=== PATIENT | female | born 1950 | race Caucasian/White ===

== ENCOUNTER 2017-08-12 19:30 | Emergency (ER) | payer OTHER ==
[~2017-08-12] VITALS: Ht 162.6 cm; Wt 99.8 kg
[2017-08-12 19:56] LABS: URINE BILIRUBIN NEGATIVE (Negative); URINE BLOOD NEGATIVE (Negative); URINE CLARITY CLEAR; URINE COLOR YELLOW; URINE GLUCOSE-RANDOM* NEGATIVE (Negative); URINE KETONES NEGATIVE (Negative); URINE LEUKOCYTES NEGATIVE (Negative); URINE NITRITE NEGATIVE (Negative); URINE PROTEIN (DIPSTICK) NEGATIVE (Negative); URINE UROBILINOGEN 0.2 E.U./dl (0.2-1.0)
[2017-08-12] MEDS ORDERED: ZESTORETIC 20-1 EAC3 PO (20:54)
[2017-08-12] MEDS ORDERED: ASPIR 8181 MG PO (20:54)
[2017-08-12] MEDS ORDERED: CLONIDINE0.1 PO (20:54)
[2017-08-12 20:58] LABS: ABSOLUTE NEUTROPHILS 12.3 thou/uL (1.4-8.2); BASOPHILS 0.7 % (0.0-2.0); HEMOGLOBIN 14.2 gm/dL (12.0-15.0); LYMPHOCYTES 11.6 % (24.0-44.0); MCH 31.7 pg (26.0-34.0); MCHC 34.6 g/dL (28.0-37.0); MCV 91.7 fL (80.0-100.0); MONOCYTES 5.8 % (1.0-8.0); PLATELET COUNT 271 thou/uL (150-400); POLYS 80.9 % (36.0-66.0); RBC 4.47 mil/uL (4.20-5.00); RDW 13.9 % (10.5-14.5); WBC 15.2 thou/uL (4.0-11.0)
[2017-08-12 21:07] LABS: CALCIUM 9.5 mg/dL (8.5-10.1); CREATININE 0.9 mg/dL (0.6-1.0); POTASSIUM 3.8 mmol/L (3.5-5.1)
[2017-08-12 21:12] LABS: ALBUMIN 4.1 g/dL (3.4-5.0); TOTAL BILIRUBIN 0.4 mg/dL (<0.1-1.0); TOTAL PROTEIN 7.8 g/dL (6.4-8.2)
[2017-08-12] MEDS ORDERED: HYDROCODONE-AP1 EAC6 PO (22:51)
== END 2017-08-12 23:35 | disposition home or self-care (01) ==
LOC: ER 19:30
PROVIDERS: Physician Assistant
DX: S39.011A Strain of muscle, fascia and tendon of abdomen, initial encounter (principal); I10 Essential (primary) hypertension; Z90.49 Acquired absence of other specified parts of digestive tract; Z88.0 Allergy status to penicillin; X58.XXXA Exposure to other specified factors, initial encounter; Y93.89 Activity, other specified; Y92.89 Other specified places as the place of occurrence of the external cause; Y99.8 Other external cause status